=== PATIENT | female | born 1945 | race Caucasian/White ===

== ENCOUNTER 2017-04-13 07:33 | Emergency (ER) | payer MEDICARE, OTHER | END 2017-04-13 08:45 | disposition other institution (70) | LOC: ER 07:33 | DX: R57.0 Cardiogenic shock (principal); I21.3 ST elevation (STEMI) myocardial infarction of unspecified site; Z95.1 Presence of aortocoronary bypass graft | CPT/HCPCS: 92950; 96365; 96367; 96368; J0330; J3101 ==